=== PATIENT | female | born 1975 | race Caucasian/White ===

== ENCOUNTER → 2016-10-31 | Outpatient (REF) ==
[~2016-10-31] MED LIST: BACTRIM DS 8001 TAB PO; IBU800 M1 PO; TYLENOL 500MG500 MG PO
== END ==
LOC: WSOH 08:30
DX: Z02.89 Encounter for other administrative examinations (principal)

== ENCOUNTER → 2016-12-14 | Outpatient (REF) | LOC: WSOH 16:12 | DX: Z02.89 Encounter for other administrative examinations (principal) ==

== ENCOUNTER → 2017-02-01 | Outpatient (CLI) | payer OTHER | LOC: MC.RAD 15:00 | DX: Z12.31 Encounter for screening mammogram for malignant neoplasm of breast (principal) ==

== ENCOUNTER → 2018-03-06 | Outpatient (CLI) | payer OTHER | LOC: MC.RAD 07:20 | DX: Z12.31 Encounter for screening mammogram for malignant neoplasm of breast (principal) ==

== ENCOUNTER → 2019-03-14 | Outpatient (CLI) | payer OTHER | LOC: MC.RAD 07:22 | DX: Z12.31 Encounter for screening mammogram for malignant neoplasm of breast (principal) ==

== ENCOUNTER → 2020-03-16 | Outpatient (CLI) | payer OTHER | LOC: MC.RAD 11:17 | DX: Z12.31 Encounter for screening mammogram for malignant neoplasm of breast (principal) ==

== ENCOUNTER → 2021-03-17 | Outpatient (CLI) | payer OTHER | LOC: MC.RAD 09:23 | DX: Z12.31 Encounter for screening mammogram for malignant neoplasm of breast (principal) ==

== ENCOUNTER 2023-01-30 08:25 | Day surgery (SDC) | payer OTHER ==
[~2023-01-30] VITALS: Ht 154.9 cm; Wt 93.0 kg
[2023-01-30] MEDS ORDERED: NORVASC 10MG10 MG PO (09:12)
[2023-01-30] MEDS ORDERED: GLUCOPHAGE500 MG/TAB PO (09:12)
[2023-01-30] MEDS ORDERED: COREG 25MG25 MG/TAB PO (09:13)
[2023-01-30] MEDS ORDERED: LIPITOR20 MG PO (09:13)
[2023-01-30] MEDS ORDERED: VITAMIN D PO (09:14)
[2023-01-30] MEDS ORDERED: OZEMPIC1 MG/0.71 SQ (09:20)
[2023-01-30] MEDS ORDERED: OMEGA-3 1000 MG1 CAP PO (09:21)
[2023-01-30] MEDS ORDERED: MOBIC 7.5MG7.5 MG PO (09:21)
[2023-01-30 09:36] VITALS: BP 124/79; PULSE 92; TEMP 97.9
[2023-01-30 10:20] VITALS: BP 111/66; PULSE 96; TEMP 97
[2023-01-30 10:35] VITALS: BP 114/66; PULSE 94
--- NOTE | 2023-01-30 11:02 | NUR ---
1020-PATIENT ARRIV[place] VIA CART [place] [facility], ALERT AND ORIENTED ON ARRIVAL. PT AMBULATED WITH ASSISTANCE TO RECLINER, WARM BLANKET PROVIDED. VSS. REPORT OBTAINED FROM RENETTA SMITH. PT DENIES PAIN OR NAUSEA, PO INTAKE OFFERED. 1035-VSS, PT DENIES COMPLAINTS. 1050-DR. JASMINE AT BEDSIDE TO DISCUSS PROCEDURE WITH PT AND MOTHER. DISCHARGE INSTRUCTIONS REVIEWED, QUESTIONS INVITED. IV CATHETER DISCONTINUED AND TIP INTACT. PRESSURE HELD AND BANDAGE APPLIED. 1100-PATIENT DISCHARGED HOME TO [facility] VIA WHEELCHAIR, ACCOMPANIED BY MOTHER. ALL BELONGINGS AND DC INSTRUCTIONS SENT WITH PT.
== END 2023-01-30 11:00 | disposition home or self-care (01) ==
LOC: SDCO 08:25
DX: Z12.11 Encounter for screening for malignant neoplasm of colon (principal); K64.0 First degree hemorrhoids
CPT/HCPCS: J2704; J7120

== ENCOUNTER → 2023-05-22 | Outpatient (CLI) | payer OTHER ==
[~2023-05-22] MED LIST changes: +COREG 25MG25 MG/TAB PO; +GLUCOPHAGE500 MG/TAB PO; +LIPITOR20 MG PO; +MOBIC 7.5MG7.5 MG PO; +NORVASC 10MG10 MG PO; +OMEGA-3 1000 MG1 CAP PO; +OZEMPIC1 MG/0.71 SQ; +VITAMIN D PO
== END ==
LOC: MC.RAD 09:55
DX: Z12.31 Encounter for screening mammogram for malignant neoplasm of breast (principal)